=== PATIENT | male | born 1975 | race Caucasian/White ===

== ENCOUNTER → 2017-05-12 | Outpatient (CLI) | payer OTHER | LOC: FIMAGING 14:15 | DX: Z13.6 Encounter for screening for cardiovascular disorders (principal) ==

== ENCOUNTER → 2018-11-27 | Outpatient (CLI) | payer OTHER | LOC: EDSTATUS 07:42 → FIMAGING 17:27 | PROVIDERS: ATTEND Pathology Anatomic Pathology & Clinical Pathology | DX: Z48.816 Encounter for surgical aftercare following surgery on the genitourinary system (principal) ==